=== PATIENT | male | born 1945 | race African-American/Black ===

== ENCOUNTER 2016-08-05 05:03 | Emergency (ER) | payer MEDICAID ==
[~2016-08-05] VITALS: Ht 177.8 cm; Wt 100.0 kg
[~2016-08-05 05:03] MED LIST: GLYB1.252; METF500T; [UNRECOGNIZED DRUG - REMARK]
[2016-08-05] MEDS ORDERED: HYDROCODONE/ACETAMINOPHEN 10/325MG TABLET PO ONE (06:45)
[2016-08-05 08:10] VITALS: BP 134/76
== END 2016-08-05 08:14 | disposition home or self-care (01) ==
LOC: ER 05:04
DX: M25.511 Pain in right shoulder (principal); M19.90 Unspecified osteoarthritis, unspecified site; I10 Essential (primary) hypertension; E11.9 Type 2 diabetes mellitus without complications
CPT/HCPCS: 73030; 99284; Z7610; A4565

== ENCOUNTER 2017-03-26 10:45 | Emergency (ER) | payer MEDICAID ==
[~2017-03-26] VITALS: Ht 172.7 cm; Wt 110.0 kg
[2017-03-26 14:40] VITALS: BP 136/82
== END 2017-03-26 15:36 | disposition home or self-care (01) ==
LOC: ER 11:05
DX: J06.9 Acute upper respiratory infection, unspecified (principal); I10 Essential (primary) hypertension; E11.9 Type 2 diabetes mellitus without complications; Z87.891 Personal history of nicotine dependence
CPT/HCPCS: 71010; 99283